=== PATIENT | male | born 1960 | race Caucasian/White ===

== ENCOUNTER → 2025-06-01 08:39 | Outpatient (REF) | payer OTHER, SELFPAY | LOC: RAD 08:39 | PROVIDERS: ATTENDING PHYSICIAN Podiatrist Foot & Ankle Surgery; FAMILY PHYSICIAN Family Medicine | DX: G57.61 Lesion of plantar nerve, right lower limb (principal); M77.41 Metatarsalgia, right foot | CPT/HCPCS: 76882 ==